=== PATIENT | male | born 2000 | race African-American/Black ===

== ENCOUNTER 2021-06-22 09:20 | Emergency (ER) | payer MEDICAID ==
[~2021-06-22] VITALS: Ht 172.7 cm; Wt 73.0 kg
[2021-06-22] MEDS ORDERED: PROPOFOL 200MG/20ML VIAL IV ONE (09:45)
[2021-06-22 12:56] VITALS: BP 121/79
== END 2021-06-22 12:58 | disposition home or self-care (01) ==
LOC: ER 09:34
DX: M24.412 Recurrent dislocation, left shoulder (principal)
CPT/HCPCS: 23650; 73030; 99152; 99285; J2704; Z7610; L3670

== ENCOUNTER 2023-03-09 18:12 | Emergency (ER) | payer MEDICAID ==
[~2023-03-09] VITALS: Ht 182.9 cm; Wt 84.0 kg
[2023-03-09 18:18] VITALS: BP 141/78; PULSE 128; RESP 18; TEMP 99.5; O2SAT 99
== END 2023-03-09 21:11 | disposition home or self-care (01) ==
LOC: ER 18:12
DX: Z00.00 Encounter for general adult medical examination without abnormal findings (principal)
CPT/HCPCS: 99281